=== PATIENT | male | born 1965 ===

== ENCOUNTER 2017-08-24 10:57 | Emergency (ER) | payer OTHER, SELFPAY ==
[2017-08-24 11:12] VITALS: BMI 34.4
[2017-08-24 11:14] VITALS: O2SAT 95
--- NOTE | 2017-08-24 12:42 | ED PDOC ---
Lower Extremity Pain/Injury Time Seen by Provider: 08/24/17 11:08 Chief Complaint (Nursing): Lower Extremity Problem/Injury Chief Complaint (Provider): Lower Extremity Problem/Injury History Per: Patient History/Exam Limitations: no limitations Onset/Duration Of Symptoms: Days (x3 weeks), Intermittent Episodes Current Symptoms Are (Timing): Still Present Pain Scale Rating Of: 7 Additional Complaint(s): 52 year old male with a history of hypercholesterolemia, HTN presents to the ED for intermittent episodes of atraumatic right knee pain for the past 3 weeks. Patient describes discomfort to be a stabbing pain that is 7 out of 10 in severity. He reports pain worsens with ambulation and bearing weight. Patient denies fall, fever, prior knee injury, other joint pain, rash, abdominal pain, chest pain, nausea, vomiting, diarrhea, or any other medical complaints. Patient has taken Advil for present symptoms, with minimal relief; last dose last night. PMD: none provided. Past Medical History Reviewed: Historical Data, Nursing Documentation, Vital Signs Vital Signs: Last Vital Signs Temp 98.1 F 08/24/17 11:13 Pulse 81 08/24/17 11:13 Resp 18 08/24/17 11:13 BP 171/86 H 08/24/17 11:13 Pulse Ox 95 08/24/17 11:13 - Medical History PMH: HTN, Hypercholesterolemia - Surgical History Surgical History: Hernia Repair - Family History Family History: States: Unknown Family Hx - Social History Current smoker - smoking cessation education provided: No Ex-Smoker (has not smoked in the last 12 months): Yes Alcohol: None Drugs: Denies - Home Medications Home Medications: Ambulatory Orders Medication Instructions Recorded Naproxen [Naprosyn] 500 mg PO Q12H #20 tab 01/16/14 Ibuprofen [Motrin] 400 mg PO Q8 #30 tab 10/01/14 Meloxicam [Mobic] 15 mg PO DAILY #14 tab 08/24/17 - Allergies Allergies/Adverse Reactions: Allergies Allergy/AdvReac Type Severity Reaction Status Date / Time No Known Allergies Allergy Verified 08/24/17 11:21 Review of Systems ROS Statement: Except As Marked, All Systems Reviewed And Found Negative Constitutional: Negative for: Fever Cardiovascular: Negative for: Chest Pain Gastrointestinal: Negative for: Nausea, Vomiting, Abdominal Pain, Diarrhea Musculoskeletal: Positive for: Other (right knee pain, no past history of knee injuries) Skin: Negative for: Rash Physical Exam - Reviewed Nursing Documentation Reviewed: Yes Vital Signs Reviewed: Yes - Physical Exam Appears: Positive for: Well, Non-toxic, No Acute Distress Head Exam: Positive for: ATRAUMATIC, NORMOCEPHALIC Skin: Positive for: Normal Color, Warm, Dry Eye Exam: Positive for: EOMI, PERRL ENT: Positive for: Other (Mucus membranes moist. Airway patent, (-) stridor.) Neck: Positive for: Painless ROM, Supple Cardiovascular/Chest: Positive for: Regular Rate, Rhythm Respiratory: Positive for: Normal Breath Sounds. Negative for: Decreased Breath Sounds, Accessory Muscle Use, Respiratory Distress Gastrointestinal/Abdominal: Positive for: Soft. Negative for: Tenderness, Distended, Guarding Comments: Right knee: intact ROM with pain on extension, no effusion, no ecchymosis, no overlying skin changes (+) tenderness to medial aspect of knee Prominent tibial tuberosity, no erythema or warmth No instability on valgus or varus stress Negative anterior/posterior drawer sign (-) calf tenderness (-) palpable cord Remainder of lower extremity, including foot, ankle, and hip: nontender, FROM. - ECG O2 Sat by Pulse Oximetry: 95 (RA) Pulse Ox Interpretation: Normal Medical Decision Making Medical Decision Making: Time: 11:46 Initial Impression: Acute knee pain, likely osteoarthritis. Initial Plan: --Knee XR 3 views --Toradol 30 mg IM --Jose A Bandage Knee XR: (-) fracture (-) dislocation (+) DJD as read by Evelina TOLEDO Repeat BP: 138/80 Repeat HR: 70 Repeat O2: 99% on RA JOSE A bandage placed by ED staff, placement and application verified by Evelina Garza. NV intact after placement. On re-evaluation, patient reports improvement of symptoms. Ambulatory in ED with steady, unassisted gait. On exam, patient remains AAOx3, in no acute distress. Lungs clear to auscultation, cardiac RRR, repeat neuro exam shows no focal findings. VSS, stable for discharge. RICE encouraged. Lab/Diagnostic results d/w the patient in great detail. Diagnosis of acute knee pain, osteoarthritis d/w the patient. Based on history, exam and diagnostic results, plan will be for outpatient follow up. Patient instructed to follow-up with pmd / referral provided / the clinic in 1- 2 days without fail. Advised to take medication as prescribed. Return to the emergency room at any time for any new or worsening symptoms. Patient states he fully agrees with and understands discharge instructions. States that he agrees with the plan and disposition. Verbalized and repeated discharge instructions and plan. I have given the patient opportunity to ask any additional questions. Scribe Attestation: Documented by Angie Donovan, acting as a scribe for Anne Hoyt PA-C Provider Scribe Attestation: All medical record entries made by the Scribe were at my direction and personally dictated by me. I have reviewed the chart and agree that the record accurately reflects my personal performance of the history, physical exam, medical decision making, and the department course for this patient. I have also personally directed, reviewed, and agree with the discharge instructions and disposition. Disposition - Clinical Impression Clinical Impression: Knee pain, Osteoarthritis - Patient ED Disposition Is Patient to be Admitted: No - Disposition Referrals: [facility] [Outside] Disposition: Routine/Home Disposition Time: 12:52 Condition: IMPROVED Additional Instructions: SEGUIR CON LA CLNICA EN 1-2 DICKEY PARA ALANA NUEVA EVALUACIN. VUELVA A ED CON CUALQUIER SNTOMAS NUEVOS O EMPEORANTES. DESCANSO. HIELO. COMPRESS (BANDAGE) ELEVAR. Prescriptions: Meloxicam [Mobic] 15 mg PO DAILY #14 tab Instructions: Osteoarthritis, Knee Pain Forms: [facility] (Sami) Print Language: CITIZEN OF [place] Present On Arrival: None
[2017-08-24 13:03] VITALS: BP 138/80; PULSE 70; RESP 15; TEMP 98.4
--- NOTE | 2017-08-24 15:09 | RAD ---
PROCEDURE: Right Knee Radiographs. HISTORY: joint pain COMPARISON: None. FINDINGS: BONES: No acute fracture or destructive bony lesion identified. JOINTS: Joint space narrowing and limited cortical sclerosis appreciate the patellofemoral and medial femorotibial compartments compatible with degenerative joint disease. JOINT EFFUSION: Trace suprapatellar bursa effusion may be present. OTHER FINDINGS: None. IMPRESSION: No acute fracture, subluxation or dislocation. Degenerative joint changes appear mild severity.
== END 2017-08-24 13:03 | disposition home or self-care (01) ==
LOC: H.ER 10:57
DX: M17.11 Unilateral primary osteoarthritis, right knee (principal); M25.561 Pain in right knee; E78.00 Pure hypercholesterolemia, unspecified; I10 Essential (primary) hypertension; Z87.891 Personal history of nicotine dependence
CPT/HCPCS: 73562; 96372; 99283; J1885